=== PATIENT | male | born 1970 | race Two or more races ===

== ENCOUNTER 2024-05-28 18:13 | Inpatient (IN) | payer SELFPAY ==
[~2024-05-28] VITALS: Ht 177.8 cm; Wt 111.0 kg
[2024-05-28 18:45] LABS: BASOPHILS # (AUTO) 0.1 X10'3 (0-0.2); BASOPHILS % (AUTO) 0.8 % (0-1); EOSINOPHILS % (AUTO) 0.6 % (0-6); HEMOGLOBIN 15.3 g/dl (14.0-17.9); LYMPHOCYTES % (AUTO) 13.6 % (21-51); MEAN CORPUSCULAR HEMOGLOBIN 31.1 PG (27.0-31.0); MEAN CORPUSCULAR VOLUME 91.5 FL (78-98); MEAN PLATELET VOLUME 8.6 FL (7.4-10.4); MONOCYTES # (AUTO) 0.6 X10'3 (0-0.9); MONOCYTES % (AUTO) 7.6 % (2-12); NEUTROPHILS # (AUTO) 5.7 X10'3 (1.8-7.7); NEUTROPHILS % (AUTO) 77.4 % (42-75); PLATELET COUNT 218 X10'3 (140-440); RED BLOOD COUNT 4.93 X10'6 (4.70-6.10); RED CELL DISTRIBUTION WIDTH 15.1 % (11.5-14.5); WHITE BLOOD COUNT 7.4 X10'3 (4.5-11.0)
[2024-05-28] MEDS: HEPARIN DRIP-CARDIAC**PHARMACIST-TO-DOSE IV ONE (18:47)
[2024-05-28] MEDS: heparin 10,000 units/1 ML INJ IV PRN (18:48)
[2024-05-28] MEDS: HEPARIN DRIP INITAL BOLUS --- DO NOT GIVE/ORDER MC ONE (18:48)
[2024-05-28] MEDS ORDERED: MESSAGE TO NURSING IV ONE (18:50)
[2024-05-28] MEDS: morphine 4 MG/ML inj SYRINge IV ONE (18:56)
[2024-05-28 19:00] LABS: APTT 31 SECONDS (22-32); INR 1.1 INR; PROTHROMBIN TIME 10.9 SECONDS (9.0-12.0)
[2024-05-28] MEDS: heparin 25,000 UNIT/250ml bag 250 ML IV PRN (19:03)
[2024-05-28 19:04] LABS: ALBUMIN 3.7 G/DL (3.4-5.0); ANION GAP 11 (8-16); BLOOD UREA NITROGEN 17 MG/DL (7-18); BUN/CREATININE RATIO 16.5 (10.0-20.0); CALCIUM 8.9 MG/DL (8.5-10.1); CHLORIDE 100 MMOL/L (99-107); CREATININE 1.03 MG/DL (0.60-1.10); GLUCOSE 116 MG/DL (70-104); POTASSIUM 3.6 MMOL/L (3.5-5.1); SODIUM 135 MMOL/L (135-145); TOTAL CARBON DIOXIDE 24.5 MMOL/L (24-32); eCRCL 86 ML/MIN; eGFR 76 ML/MIN
[2024-05-28] MEDS: MESSAGE TO NURSING IV ONE ×2 (19:09→20:18)
[2024-05-28] MEDS ORDERED: nitroGLYCERIN 0.4mg SUBLingual tab SL PRN (20:55)
[2024-05-28] MEDS ORDERED: morphine 4 MG/ML inj SYRINge IV PRN (21:15)
[2024-05-28] MEDS: atorvastatin 20mg tablet PO SCH (21:21)
[2024-05-28] MEDS: metoprolol tartrate 25mg tablet PO ONE (21:21)
[2024-05-28] MEDS ORDERED: magnesium Cl slow-release 64mg tablet PO PRN (21:30)
[2024-05-28] MEDS ORDERED: magnesium sulf-water 4G/100mL 100 ML IV PRN (21:30)
[2024-05-28] MEDS ORDERED: potassium Cl 40MEQ/1/2NS 520ml 520 ML IV PRN (21:30)
[2024-05-28] MEDS ORDERED: magnesium sulf-water 2g/50mL 50 ML IV PRN (21:30)
[2024-05-28] MEDS ORDERED: potassium Cl 20 mEq SR tablet PO PRN ×2 (21:30)
[2024-05-28] MEDS ORDERED: ondansetron 4mg rapidly disintigrating tab PO PRN (21:30)
[2024-05-28 21:55] VITALS: BP 139/64; PULSE 68; RESP 16; TEMP 97.7; O2SAT 98
[2024-05-29] VITALS (9 sets, daily range): BP systolic 126–145; BP diastolic 79–96; PULSE 69–78; RESP 10–20; TEMP 97.4–98.3; O2SAT 94–100
[2024-05-29] MEDS: diazepam 5mg tablet PO ONE (00:48)
[2024-05-29 01:33] LABS: BASOPHILS # (AUTO) 0.1 X10'3 (0-0.2); EOSINOPHILS # (AUTO) 0.1 X10'3 (0-0.9); EOSINOPHILS % (AUTO) 1.1 % (0-6); HEMATOCRIT 44.1 % (42.0-52.0); HEMOGLOBIN 14.9 g/dl (14.0-17.9); LYMPHOCYTES # (AUTO) 1.1 X10'3 (1.1-4.8); LYMPHOCYTES % (AUTO) 15.7 % (21-51); MEAN CORPUSCULAR HEMOGLOBIN 30.7 PG (27.0-31.0); MEAN CORPUSCULAR HGB CONC 33.8 g/dL (33.0-36.5); MEAN CORPUSCULAR VOLUME 90.8 FL (78-98); MEAN PLATELET VOLUME 8.7 FL (7.4-10.4); MONOCYTES # (AUTO) 0.6 X10'3 (0-0.9); MONOCYTES % (AUTO) 8.9 % (2-12); NEUTROPHILS # (AUTO) 5.2 X10'3 (1.8-7.7); NEUTROPHILS % (AUTO) 73.3 % (42-75); PLATELET COUNT 215 X10'3 (140-440); RED BLOOD COUNT 4.86 X10'6 (4.70-6.10); WHITE BLOOD COUNT 7.1 X10'3 (4.5-11.0)
[2024-05-29 01:50] LABS: HEMOGLOBIN A1C 5.9 % (4.5-6.2)
[2024-05-29 01:54] LABS: ALANINE AMINOTRANSFERASE 22 U/L (12-78); ALBUMIN 3.4 G/DL (3.4-5.0); ALBUMIN/GLOBULIN RATIO 0.9 (1.1-1.5); ALKALINE PHOSPHATASE 78 IU/L (46-116); ANION GAP 10 (8-16); ASPARTATE AMINO TRANSFERASE 21 U/L (10-37); BILIRUBIN,TOTAL 1.9 MG/DL (0.1-1.0); BLOOD UREA NITROGEN 18 MG/DL (7-18); BUN/CREATININE RATIO 17.6 (10.0-20.0); CALCIUM 8.4 MG/DL (8.5-10.1); CHLORIDE 101 MMOL/L (99-107); CHOL/HDL RATIO 3.4 (0.00-4.99); CHOLESTEROL 192 MG/DL (0-200); CREATININE 1.02 MG/DL (0.60-1.10); GLUCOSE 101 MG/DL (70-104); HDL CHOLESTEROL 56 MG/DL (35-60); LDL CHOLESTEROL 116 MG/DL (50-100); MAGNESIUM 1.7 MG/DL (1.5-2.4); PHOSPHORUS 3.5 MG/DL (2.3-4.5); POTASSIUM 3.7 MMOL/L (3.5-5.1); SODIUM 136 MMOL/L (135-145); THYROID STIMULATING HORMONE 5.42 ulU/ml (0.34-4.50); TOTAL CARBON DIOXIDE 25.1 MMOL/L (24-32); TOTAL PROTEIN 7.4 G/DL (6.4-8.2); TRIGLYCERIDES 67 MG/DL (20-135); eCRCL 86 ML/MIN; eGFR 76 ML/MIN
[2024-05-29] MEDS: MESSAGE TO NURSING IV ONE ×2 (02:29→08:37)
[2024-05-29] MEDS: diazepam 5mg tablet PO PRN (04:01)
[2024-05-29 06:54] LABS: APTT 42 SECONDS (22-32); INR 1.1 INR; PROTHROMBIN TIME 11.1 SECONDS (9.0-12.0)
[2024-05-29] MEDS: K and/or MAG REPLACEMENT MC SCH (08:00)
[2024-05-29] MEDS: metoprolol tartrate 25mg tablet PO SCH (08:00)
[2024-05-29] MEDS: pantoprazole 40 MG vial IV SCH (08:26)
[2024-05-29] MEDS: aspirin 81mg, enteric-coated 1 TAB TABLET.DR PO SCH (08:27)
[2024-05-29] MEDS: atorvastatin 20mg tablet PO SCH (12:02)
[2024-05-29] MEDS: spironolactone 25 MG tablet PO SCH (16:14)
[2024-05-29] MEDS ORDERED: metoprolol tartrate 12.5mg (1/2 tablet) PO SCH (20:00)
[2024-05-29] MEDS: sacubitril/valsartan 24mg-26mg tablet PO SCH (20:23)
[2024-05-30 01:21] LABS: URINE AMPHETAMINE SCREEN NEGATIVE (Neg); URINE BARBITUATE SCREEN NEGATIVE (Neg); URINE BENZODIAZEPINES SCREEN NEGATIVE (Neg); URINE CANNABINOID SCREEN NEGATIVE (Neg); URINE COCAINE SCREEN NEGATIVE (Neg); URINE METHADONE SCREEN NEGATIVE (Neg); URINE OPIATE SCREEN NEGATIVE (Neg); URINE PHENCYCLIDINE SCREEN NEGATIVE (Neg)
[2024-05-30 02:00] VITALS: BP 132/94; PULSE 62; RESP 14; TEMP 97.9; O2SAT 100
[2024-05-30 06:56] LABS: BASOPHILS % (AUTO) 1.1 % (0-1); EOSINOPHILS # (AUTO) 0.1 X10'3 (0-0.9); EOSINOPHILS % (AUTO) 3.4 % (0-6); HEMATOCRIT 47.4 % (42.0-52.0); LYMPHOCYTES # (AUTO) 1.1 X10'3 (1.1-4.8); LYMPHOCYTES % (AUTO) 28.6 % (21-51); MEAN CORPUSCULAR HEMOGLOBIN 31.1 PG (27.0-31.0); MEAN CORPUSCULAR HGB CONC 33.7 g/dL (33.0-36.5); MEAN CORPUSCULAR VOLUME 92.3 FL (78-98); MEAN PLATELET VOLUME 8.9 FL (7.4-10.4); MONOCYTES # (AUTO) 0.6 X10'3 (0-0.9); MONOCYTES % (AUTO) 14.9 % (2-12); NEUTROPHILS # (AUTO) 1.9 X10'3 (1.8-7.7); PLATELET COUNT 209 X10'3 (140-440); RED BLOOD COUNT 5.14 X10'6 (4.70-6.10); RED CELL DISTRIBUTION WIDTH 14.7 % (11.5-14.5); WHITE BLOOD COUNT 3.7 X10'3 (4.5-11.0)
[2024-05-30 07:11] LABS: APTT 25 SECONDS (22-32); PROTHROMBIN TIME 10.6 SECONDS (9.0-12.0)
[2024-05-30 07:26] LABS: ALANINE AMINOTRANSFERASE 19 U/L (12-78); ALBUMIN 3.2 G/DL (3.4-5.0); ALBUMIN/GLOBULIN RATIO 0.7 (1.1-1.5); ALKALINE PHOSPHATASE 76 IU/L (46-116); ANION GAP 11 (8-16); ASPARTATE AMINO TRANSFERASE 19 U/L (10-37); BILIRUBIN,TOTAL 1.5 MG/DL (0.1-1.0); BLOOD UREA NITROGEN 18 MG/DL (7-18); BUN/CREATININE RATIO 19.6 (10.0-20.0); CALCIUM 8.4 MG/DL (8.5-10.1); CHLORIDE 105 MMOL/L (99-107); CREATININE 0.92 MG/DL (0.60-1.10); GLUCOSE 89 MG/DL (70-104); LIPASE 35 U/L (16-77); MAGNESIUM 1.9 MG/DL (1.5-2.4); PHOSPHORUS 3.6 MG/DL (2.3-4.5); POTASSIUM 3.9 MMOL/L (3.5-5.1); SODIUM 139 MMOL/L (135-145); TOTAL CARBON DIOXIDE 23.4 MMOL/L (24-32); TOTAL PROTEIN 7.5 G/DL (6.4-8.2); eCRCL 96 ML/MIN; eGFR 86 ML/MIN
[2024-05-30 08:00] VITALS: RESP 16; O2SAT 98
[2024-05-30] MEDS ORDERED: aspirin 81mg, enteric-coated 1 TAB TABLET.DR PO SCH (08:00)
[2024-05-30 11:00] VITALS: BP 146/100; PULSE 62; RESP 14; TEMP 97.9; O2SAT 100
[2024-05-30 11:30] VITALS: RESP 16; O2SAT 98
[2024-05-30] MEDS ORDERED: iohexol 300mg/ml 100ml inj. ONE (11:40)
[2024-05-30] MEDS ORDERED: thiamine tablet PO (13:58)
[2024-05-30] MEDS ORDERED: ATOR20TA66 PO (13:58)
[2024-05-30] MEDS ORDERED: PANT40TA54 PO (13:58)
[2024-05-30] MEDS ORDERED: LOP25T PO (13:58)
[2024-05-30] MEDS ORDERED: SACU1TAB PO (13:58)
[2024-05-30] MEDS ORDERED: SPIR25TA PO (13:58)
[2024-05-30] MEDS ORDERED: FOLI1TAB27 PO (13:58)
[2024-05-30] MEDS ORDERED: ASPI-1071 PO (13:58)
[2024-05-30 15:00] VITALS: BP 140/95; PULSE 61; RESP 20; TEMP 97.1; O2SAT 100
[2024-06-01] MEDS ORDERED: thiamine 100mg tablet PO SCH (08:00)
[2024-06-02] MEDS ORDERED: folic acid 1mg tablet PO SCH (08:00)
== END 2024-05-30 17:30 | disposition home or self-care (01) | DRG 280 ==
LOC: ER 18:14 → PCU 3S 20:25 → EEVIPCON 20:25
PROVIDERS: ADMIT Internal Medicine Critical Care Medicine; ATTEND Internal Medicine
PROC: BW211ZZ Computerized Tomography (CT Scan) of Abdomen and Pelvis using Low Osmolar Contrast (ICD-10-PCS; principal; 2024-05-30)
DX: I21.4 Non-ST elevation (NSTEMI) myocardial infarction (principal); I50.21 Acute systolic (congestive) heart failure; I11.0 Hypertensive heart disease with heart failure; F15.10 Other stimulant abuse, uncomplicated; I25.10 Atherosclerotic heart disease of native coronary artery without angina pectoris; Z79.82 Long term (current) use of aspirin; Z87.891 Personal history of nicotine dependence; Z95.5 Presence of coronary angioplasty implant and graft; Z56.0 Unemployment, unspecified
CPT/HCPCS: 36415; 71045; 71260; 80048; 80053; 80061; 80305; 82948; 83036; 83690; 83735; 83880; 84100; 84443; 84484; 85025; 85610; 85730; 87081; 93005; 93306; 96374; 99285; G0378; J1644; J2270; J2470; Q9967